=== PATIENT | female | born 1950 | race Caucasian/White ===

== ENCOUNTER 2016-05-04 07:59 | Observation (INO) | payer BC ==
[2016-05-04] MEDS ORDERED: NITROGLYCERIN OINT 1 INCH/GM PACKET TOPICAL STA (08:21)
[2016-05-04] MEDS ORDERED: ASPIRIN 81 MG CHEW PO STA (08:21)
--- NOTE | 2016-05-04 08:24 | ED ---
General Adult HPI - General Chief complaint: Chest Pain Stated complaint: chest pain Time Seen by Provider: 05/04/16 08:16 Source: patient, RN notes reviewed Mode of arrival: wheelchair Limitations: no limitations - History of Present Illness Initial comments: Patient is a pleasant 65-year-old female presenting to the emergency department complaining of chest discomfort. Onset of symptoms was last night. Symptoms have been somewhat coming and going. Discomfort is near resolved at this time. Discomfort described as tightness. Despite nursing document patient denies dyspnea and patient denies radiation. No nausea. No diaphoresis. Patient has been having some similar symptoms over the past few weeks. Sometimes symptoms are at nighttime. No leg pain or swelling. No cough or fever. - Related Data Allergies Allergy/AdvReac Type Severity Reaction Status Date / Time amoxicillin AdvReac Rash/Hives Verified 05/04/16 08:12 Review of Systems ROS Statement: Those systems with pertinent positive or pertinent negative responses have been documented in the HPI. ROS Other: All systems not noted in ROS Statement are negative. Constitutional: Denies: fever Eyes: Denies: eye pain ENT: Denies: ear pain Respiratory: Denies: cough, dyspnea Cardiovascular: Reports: chest pain Endocrine: Denies: fatigue Gastrointestinal: Denies: abdominal pain Genitourinary: Denies: urgency Musculoskeletal: Denies: back pain Skin: Denies: rash Neurological: Denies: headache Psychiatric: Reports: anxiety Past Medical History History of Any Multi-Drug Resistant Organisms: None Reported Past Surgical History: Cholecystectomy Past Psychological History: Depression Smoking Status: Never smoker Past Alcohol Use History: None Reported Past Drug Use History: None Reported General Exam Limitations: no limitations General appearance: alert, in no apparent distress Head exam: Present: atraumatic Eye exam: Present: normal appearance, PERRL ENT exam: Present: normal oropharynx Neck exam: Present: normal inspection Respiratory exam: Present: normal lung sounds bilaterally. Absent: chest wall tenderness Cardiovascular Exam: Present: regular rate, normal rhythm Expanded Peripheral pulses: 2+: Radial (R), Radial (L), Dorsalis Pedis (R), Dorsalis Pedis (L) GI/Abdominal exam: Present: soft. Absent: tenderness Extremities exam: Present: normal inspection. Absent: pedal edema, calf tenderness Neurological exam: Present: alert Psychiatric exam: Present: normal affect, normal mood Skin exam: Absent: rash Course Vital Signs 05/04/16 05/04/16 05/04/16 08:06 08:28 09:22 Temperature 97.8 F 98.7 F Pulse Rate 85 72 66 Respiratory 18 16 15 Rate Blood Pressure 190/90 182/79 153/87 O2 Sat by Pulse 98 100 100 Oximetry EKG Findings - EKG Comments: EKG Findings:: Normal sinus rhythm at 81. IL 120. QRS 96. QT 390. QTC 453. Normal axis. Inferior Q waves. No acute ST change. Medical Decision Making - Medical Decision Making Patient reevaluated and resting comfortably in bed. Patient and family updated on results and plan. Case discussed in detail with Dr. Bernstein, who will admit for Dr. Sandoval. She is covering for Dr. duarte. - Lab Data Result diagrams: 05/04/16 08:15 05/04/16 08:15 Lab Results 05/04/16 05/04/16 05/04/16 Range/Units 08:15 08:15 08:15 WBC 4.8 (3.8-10.6) k/uL RBC 4.50 (3.80-5.40) m/uL Hgb 13.9 (11.4-16.0) gm/dL Hct 42.4 (34.0-46.0) % MCV 94.2 (80.0-100.0) fL MCH 30.9 (25.0-35.0) pg MCHC 32.8 (31.0-37.0) g/dL RDW 13.0 (11.5-15.5) % Plt Count 234 (150-450) k/uL Neutrophils % 41 % Lymphocytes % 42 % Monocytes % 4 % Eosinophils % 9 % Basophils % 0 % Neutrophils # 1.9 (1.3-7.7) k/uL Lymphocytes # 2.0 (1.0-4.8) k/uL Monocytes # 0.2 (0-1.0) k/uL Eosinophils # 0.5 (0-0.7) k/uL Basophils # 0.0 (0-0.2) k/uL PT (9.0-12.0) sec INR (<1.1) APTT (22.0-30.0) sec Sodium 144 (137-145) mmol/L Potassium 4.4 (3.5-5.1) mmol/L Chloride 107 (98-107) mmol/L Carbon Dioxide 26 (22-30) mmol/L Anion Gap 11 mmol/L BUN 21 H (7-17) mg/dL Creatinine 0.67 (0.52-1.04) mg/dL Est GFR (MDRD) Af Amer >60 (>60 ml/min/1.73 sqM) Est GFR (MDRD) Non-Af >60 (>60 ml/min/1.73 sqM) Glucose 100 H (74-99) mg/dL Calcium 9.4 (8.4-10.2) mg/dL Magnesium 2.2 (1.6-2.3) mg/dL Total Bilirubin 0.9 (0.2-1.3) mg/dL AST 33 (14-36) U/L ALT 27 (9-52) U/L Alkaline Phosphatase 67 (38-126) U/L Total Creatine Kinase 65 (30-135) U/L CK-MB (CK-2) 0.9 (0.0-2.4) ng/mL CK-MB (CK-2) Rel Index 1.4 Troponin I <0.012 (0.000-0.034) ng/mL Total Protein 7.4 (6.3-8.2) g/dL Albumin 4.2 (3.5-5.0) g/dL 05/04/16 Range/Units 08:15 WBC (3.8-10.6) k/uL RBC (3.80-5.40) m/uL Hgb (11.4-16.0) gm/dL Hct (34.0-46.0) % MCV (80.0-100.0) fL MCH (25.0-35.0) pg MCHC (31.0-37.0) g/dL RDW (11.5-15.5) % Plt Count (150-450) k/uL Neutrophils % % Lymphocytes % % Monocytes % % Eosinophils % % Basophils % % Neutrophils # (1.3-7.7) k/uL Lymphocytes # (1.0-4.8) k/uL Monocytes # (0-1.0) k/uL Eosinophils # (0-0.7) k/uL Basophils # (0-0.2) k/uL PT 9.8 (9.0-12.0) sec INR 1.0 (<1.1) APTT 24.9 (22.0-30.0) sec Sodium (137-145) mmol/L Potassium (3.5-5.1) mmol/L Chloride (98-107) mmol/L Carbon Dioxide (22-30) mmol/L Anion Gap mmol/L BUN (7-17) mg/dL Creatinine (0.52-1.04) mg/dL Est GFR (MDRD) Af Amer (>60 ml/min/1.73 sqM) Est GFR (MDRD) Non-Af (>60 ml/min/1.73 sqM) Glucose (74-99) mg/dL Calcium (8.4-10.2) mg/dL Magnesium (1.6-2.3) mg/dL Total Bilirubin (0.2-1.3) mg/dL AST (14-36) U/L ALT (9-52) U/L Alkaline Phosphatase (38-126) U/L Total Creatine Kinase (30-135) U/L CK-MB (CK-2) (0.0-2.4) ng/mL CK-MB (CK-2) Rel Index Troponin I (0.000-0.034) ng/mL Total Protein (6.3-8.2) g/dL Albumin (3.5-5.0) g/dL - Radiology Data Radiology results: image reviewed (Chest x-ray shows no acute process) Disposition Clinical Impression: Unstable angina pectoris Disposition: ADMITTED IP TO THIS HOSP
[2016-05-04 08:36] LABS: Basophils % (A) 0 %; Eosinophils # (A) 0.5 k/uL (0-0.7); Eosinophils % (A) 9 %; HCT 42.4 % (34.0-46.0); HGB 13.9 gm/dL (11.4-16.0); Luc # (Auto) 0.19; Luc % (Auto) 4; Lymphocytes % (A) 42 %; MCH 30.9 pg (25.0-35.0); MCHC 32.8 g/dL (31.0-37.0); MCV 94.2 fL (80.0-100.0); Mean Platelet Volume 6.7; Monocytes # (A) 0.2 k/uL (0-1.0); Monocytes % (A) 4 %; Neutrophils # (A) 1.9 k/uL (1.3-7.7); Neutrophils % (A) 41 %; WBC 4.8 k/uL (3.8-10.6); WBC (Perox) 4.85
[2016-05-04 08:47] LABS: Partial Thromboplastin Time 24.9 sec (22.0-30.0); Prothrombin Time 9.8 sec (9.0-12.0)
[2016-05-04 09:00] LABS: ALT 27 U/L (9-52); AST 33 U/L (14-36); Alkaline Phosphatase 67 U/L (38-126); Anion Gap 11 mmol/L; Blood Urea Nitrogen 21 mg/dL (7-17); Calcium 9.4 mg/dL (8.4-10.2); Carbon Dioxide 26 mmol/L (22-30); Chloride 107 mmol/L (98-107); Glucose 100 mg/dL (74-99); Magnesium 2.2 mg/dL (1.6-2.3); Non-African American GFR(MDRD) >60 (>60 ml/min/1.73 sqM); Potassium 4.4 mmol/L (3.5-5.1); Sodium 144 mmol/L (137-145); Total Bilirubin 0.9 mg/dL (0.2-1.3); Total Protein 7.4 g/dL (6.3-8.2)
--- NOTE | 2016-05-04 09:01 | XR ---
EXAMINATION TYPE: XR chest 2V DATE OF EXAM: 05/04/2016 8:38 AM COMPARISON: NONE HISTORY: Chest pain TECHNIQUE: Frontal and lateral views of the chest are obtained. FINDINGS: There is no focal air space opacity, pleural effusion, or pneumothorax seen. The cardiac silhouette size is within normal limits. There are overlying cardiac leads. Surgical clips in the up per abdomen. The osseous structures are intact. IMPRESSION: No acute cardiopulmonary process.
[2016-05-04 09:17] LABS: Creatine Kinase 65 U/L (30-135)
[2016-05-04 09:30] LABS: Creatine Kinase MB 0.9 ng/mL (0.0-2.4); Troponin I <0.012 ng/mL (0.000-0.034)
[2016-05-04] MEDS ORDERED: HEPARIN SODIUM,PORCINE 5,000 UNIT/ML 1 ML VIAL IV PRN (09:46)
[2016-05-04] MEDS ORDERED: NITROGLYCERIN SL TABS 0.4 MG TAB SUBLINGUAL PRN (09:46)
[2016-05-04] MEDS ORDERED: HEPARIN SODIUM,PORCINE 5,000 UNIT/ML 1 ML VIAL IV ONE (09:46)
[2016-05-04] MEDS: HEPARIN SODIUM,PORCINE/D5W PMX 25,000 UNIT in DEXTROSE/WATER 1 500ML.BAG IV SCH (10:12)
[2016-05-04] MEDS ORDERED: SODIUM CHLORIDE 0.9% 1,000 ML IV SCH (10:15)
--- NOTE | 2016-05-04 15:15 | P.CRDCN ---
History of Present Illness Consult date: 05/04/16 Chief complaint: Chest discomfort History of present illness: This is a pleasant 65-year-old female patient with no significant past medical history presented to the hospital with a chest tightness. She describes chest discomfort, across the chest, as a tightness in the chest, without any radiation to the arm or neck or shoulders and without any associated symptoms of shortness of breath, sweating, nausea or vomiting, or syncope. The symptom lasted about 45 minutes to one hour. She presented to the emergency room. The EKG showed sinus rhythm without acute changes with old inferior MT. The patient had only one set of cardiac enzymes came in to be unremarkable. The patient has no significant past medical history of diabetes or hypertension or dyslipidemia She does not smoke or drink alcohol. She has a significant family history of coronary artery disease. At this point, I will follow-up with the serial cardiac enzymes and further recommendation to follow that. Past Medical History Past Medical History: No Reported History History of Any Multi-Drug Resistant Organisms: None Reported Past Surgical History: Cholecystectomy Past Anesthesia/Blood Transfusion Reactions: No Reported Reaction Past Psychological History: Depression Smoking Status: Never smoker Past Alcohol Use History: None Reported Past Drug Use History: None Reported - Past Family History Brother(s) Family Medical History: Cancer Additional Family Medical History / Comment(s): liver, colon Father Family Medical History: Coronary Artery Disease (CAD), Diabetes Mellitus, Hypertension Mother Family Medical History: Coronary Artery Disease (CAD) Medications and Allergies Home Medications Medication Instructions Recorded Confirmed Type Naproxen Sodium [Aleve] 220 mg PO DAILY 05/04/16 05/04/16 History Allergies Allergy/AdvReac Type Severity Reaction Status Date / Time amoxicillin AdvReac Rash/Hives Verified 05/04/16 10:45 Physical Exam Vitals: Vital Signs Temp Pulse Resp BP Pulse Ox 05/04/16 10:50 18 05/04/16 10:17 97.8 F 69 16 144/76 98 Intake and Output 05/04/16 05/04/16 05/04/16 06:59 14:59 22:59 Other: Weight 83.915 kg Patient Weight 05/05/16 06:59 Weight 83.915 kg - Constitutional General appearance: no acute distress - Respiratory Respiratory: bilateral: CTA - Cardiovascular Rhythm: regular Heart sounds: normal: S1, S2 Results 05/04/16 08:15 05/04/16 08:15 Current Medications Generic Name Dose Route Start Last Admin Trade Name Freq PRN Reason Stop Dose Admin Aspirin 325 mg 05/05/16 09:00 Aspirin PO DAILY KENZIE Heparin Sodium (Porcine) 0 unit 05/04/16 09:46 Heparin IV Q6HR PRN Low PTT Protocol Heparin Sodium/Dextrose 25,000 500 mls @ 19.97 mls/hr 05/04/16 10:00 10:12 unit/ IV Solution IV 11.9 units/kg/hr .Q24H KENZIE 19.97 mls/hr Protocol Administration 11.9 UNITS/KG/HR Sodium Chloride 1,000 mls @ 20 mls/hr 05/04/16 10:15 05/04/16 10:11 Saline 0.9% IV 20 mls/hr .Q24H KENZIE Administration Nitroglycerin 1 inch 05/04/16 12:00 Nitro-Bid Oint TOPICAL Q6HR KENZIE Nitroglycerin 0.4 mg 05/04/16 09:46 Nitrostat SUBLINGUAL Q5M PRN Chest Pain Sodium Chloride 10 ml 05/04/16 21:00 Saline Flush IV BID KENZIE Intake and Output 05/04/16 05/04/16 05/04/16 06:59 14:59 22:59 Other: Weight 83.915 kg Patient Weight 05/05/16 06:59 Weight 83.915 kg Assessment and Plan Plan: Assessment #1 chest tightness #2 significant family history of coronary artery disease Plan #1 rule out acute coronary event #2 follow-up with the serial cardiac enzymes #3 further recommendation to follow the
[2016-05-04 15:28] LABS: Creatine Kinase 59 U/L (30-135)
[2016-05-04 15:41] LABS: Creatine Kinase MB 0.6 ng/mL (0.0-2.4); Troponin I <0.012 ng/mL (0.000-0.034)
[2016-05-04] MEDS: NITROGLYCERIN OINT 1 INCH/GM PACKET TOPICAL SCH ×2 (16:24→19:31)
--- NOTE | 2016-05-04 18:33 | HP ---
DATE OF SERVICE: 05/04/2016 CHIEF COMPLAINT: Chest pain. HISTORY OF PRESENT ILLNESS: Ms. Perez is a 65-year-old female with no significant past medical history coming into the hospital with a chief complaint of chest discomfort. The patient states that she has been having chest discomfort on and off for the past one month. It is mostly substernal in location. The patient denies having any radiation of the pain, to the neck, jaw or back. She denies having any difficulty in breathing. No loss of consciousness, no dizziness. She denies having any nausea or diaphoresis or vomiting. Yesterday the chest pain lasted a little longer than what it usually does and so she came into the hospital for further evaluation. The patient denies having any orthopnea, PND, or lower extremity swelling. She denies having any history of smoking. There is family history of coronary artery disease in both her parents. She follows with Dr. Sandoval, who is her PCP. REVIEW OF SYSTEMS: CONSTITUTIONAL: Denies having any fevers, chills, or rigors. RESPIRATORY: No cough. No difficulty in breathing. CARDIAC: As per HPI. GI: No abdominal pain, nausea, vomiting, or diarrhea. : No dysuria or hematuria. HEMATOLOGICAL: No history of any recurrent infections or easy bruising. DERMATOLOGICAL: None. ENDOCRINE: No history of hypertension or diabetes. MUSCULOSKELETAL: No joint aches, pains or swellings. PSYCHIATRIC: None. All 13 review of systems are done and negative except for ones mentioned in the HPI. ALLERGIES: AMOXICILLIN. PAST MEDICAL HISTORY: None. Patient's home medication: Naproxen 220 mg p.o. daily p.r.n. for joint pains. FAMILY HISTORY: Positive for coronary artery disease in both parents. SOCIAL HISTORY: Never a smoker. No alcohol abuse. No intravenous drug abuse. PAST SURGICAL HISTORY: Cholecystectomy. On examination, patient's vital signs: Temperature 97.8, heart rate 69, respiratory rate 16, blood pressure 144/76, saturating at 98% on 2 liters of nasal cannula. GENERAL EXAMINATION: Patient appears to be in no acute distress. HEAD: Atraumatic and noncommunicative. Pupils round and reactive to light. No pallor. No icterus. NECK: No JVD. No thyromegaly. CARDIOVASCULAR: S1, S2 heard. No additional sounds. RESPIRATORY: Bilateral breath sounds are positive. No wheeze or crackles. ABDOMEN: Soft, nontender, no organomegaly. Bowel sounds are positive. EXTREMITIES: No edema. No cyanosis, no clubbing. Peripheral pulses are felt. P[employer]ER PROP PLAYER: Alert, awake and tender x3. No focal neurological deficits. PSYCHIATRIC: Appropriate mood and affect. SKIN: No rash. The patient's labs: White count of 4.8, hemoglobin is 13.9, platelets of 234. Sodium is 144, potassium 4.4, chloride 103, bicarb 26, BUN 21, creatinine 0.67, blood glucose of 100, troponin less than 0.012. Patient also had a chest x-ray, no acute cardiopulmonary process and EKG normal sinus rhythm. ASSESSMENT AND PLAN: Unstable angina. Patient has been started on heparin drip and cardiology consult has been obtained. Patient has very strong family history of coronary artery disease and has chest pain going on for almost a month. She will need a stress test done so we will keep the patient n.p.o. for tomorrow morning. Will continue to follow the patient and further recommendations depending on the progress of the patient. CHANELLE
[2016-05-04 19:50] VITALS: RESP 16
[2016-05-04 21:42] LABS: Creatine Kinase 53 U/L (30-135)
[2016-05-04 21:55] LABS: Creatine Kinase MB 0.5 ng/mL (0.0-2.4); Troponin I <0.012 ng/mL (0.000-0.034)
[2016-05-05 03:54] LABS: Mean Platelet Volume 7.1
[2016-05-05] MEDS: NITROGLYCERIN OINT 1 INCH/GM PACKET TOPICAL SCH ×3 (04:15→13:18)
[2016-05-05 04:23] LABS: Cholesterol 156 mg/dL (<200); HDL Cholesterol 75 mg/dL (40-60); Triglycerides 46 mg/dL (<150)
[2016-05-05] MEDS ORDERED: ASPIRIN 325 MG TAB PO SCH (09:00)
--- NOTE | 2016-05-05 09:36 | PN ---
Mary is a 65-year-old lady who was admitted to hospital with chest pain and ruled out for myocardial infarction. Cardiac enzymes are negative. At the time of my evaluation this morning, she is pain-free. On exam, comfortable at rest. Vital signs are stable. There is no jugular venous distention. Chest exam reveals good air entry bilaterally. Heart exam reveals first and second heart sounds. No gallop. Exam of the extremities did not reveal any edema. Peripheral pulses are felt. ASSESSMENT: Chest pain, rule out coronary artery disease. PLAN: Patient will undergo a stress test this morning. If this is negative, she will go home. If it is abnormal, she will undergo cardiac catheterization.
--- NOTE | 2016-05-05 11:23 | NM ---
EXAMINATION TYPE: NM stress cardiolite complete DATE OF EXAM: 05/05/2016 11:11 AM COMPARISON: NONE HISTORY: Chest pain TECHNIQUE: After the intravenous administration of 10.5 mCi Tc 99m Sestamibi - Rest images obtained 45 minutes post injection. The patient exercised using a JOSE protocol and 1 minute prior to peak exercise was injected with 27.0 mCi Tc 99m Sestamibi - Stress images obtained 30 minutes post injecti on. FINDINGS: Targeted heart rate was achieved during performance of the study. Review of stress and rest SPECT aye ges demonstrates no distinct perfusion abnormality. Gated analysis shows normal wall motion with an estimated left ventricular ejection fraction of 57 %. IMPRESSION: No scintigraphic evidence for reversible ischemia
--- NOTE | 2016-05-05 12:00 | ECHOF ---
Referral Reason:chest pain MEASUREMENTS -------- HEIGHT: 160.0 cm WEIGHT: 83.9 kg BP: 130/60 IVSd: 1.0 cm (0.6 - 1.1) LVIDd: 4.2 cm (3.9 - 5.3) LVPWd: 0.8 cm (0.6 - 1.1) IVSs: 1.3 cm LVIDs: 3.3 cm LVPWs: 1.3 cm LA Diam: 3.0 cm (2.7 - 3.8) LAESV Index (A-L): 27.23 ml/m Ao Diam: 2.6 cm (2.0 - 3.7) AV Cusp: 1.6 cm (1.5 - 2.6) LA Diam: 2.9 cm (2.7 - 3.8) MV EXCURSION: 14.273 mm (> 18.000) MV EF SLOPE: 90 mm/s (70 - 150) EPSS: 0.5 cm MV E Nate: 0.71 m/s MV DecT: 161 ms MV A Nate: 0.74 m/s MV E/A Ratio: 0.96 RAP: 5.00 mmHg RVSP: 20.01 mmHg FINDINGS -------- Sinus rhythm. This was a technically adequate study. There is borderline concentric left ventricular hypertrophy. Overall left ventricular systolic function is normal with, an EF between 55 - 60 %. The right ventricle is normal in size. Normal LA size by volume 22+/-6 ml/m2. The right atrial size is normal. There is mild aortic valve sclerosis. Trace amount of aortic regurgitation. Mild mitral annular calcification present. Mild mitral regurgitation is present. Mild tricuspid regurgitation present. There is no evidence of pulmonary hypertension. The right ventricular systolic pressure, as measured by Doppler, is 20.01mmHg. There is no pulmonic regurgitation present. The aortic root size is normal. There is no pericardial effusion. CONCLUSIONS -------- 1. There is borderline concentric left ventricular hypertrophy. 2. The right ventricular systolic pressure, as measured by Doppler, is 20.01mmHg. 3. Overall left ventricular systolic function is normal with, an EF between 55 - 60 %. 4. Normal LA size by volume 22+/-6 ml/m2. 5. There is mild aortic valve sclerosis. 6. Trace amount of aortic regurgitation. 7. Mild mitral annular calcification present. 8. Mild mitral regurgitation is present. 9. Mild tricuspid regurgitation present. 10. There is no evidence of pulmonary hypertension. CHAIN MORTISER OPERATOR: Antoinette Smith RDCS
[2016-05-05 12:10] VITALS: BP 140/71; PULSE 80; TEMP 98.8
[2016-05-05] MEDS: HEPARIN SODIUM,PORCINE/D5W PMX 25,000 UNIT in DEXTROSE/WATER 1 500ML.BAG IV SCH (13:19)
--- NOTE | 2016-05-06 13:51 | ECHOS ---
DATE OF SERVICE: 05/05/16 AGE: 65Y SEX: F HT: 63" WT: 185 lbs. Protocol Caesar: Cardiolite Others: Stage: 2 Dur. of Exercise: 3:00 *Heart Rate Blood Pressure *Rest: 83 Rest: 132/90 * *Max. Achieved: 154 Maximum BP: 175/91 85% PMHR: 133 100% PMHR: 157 *METS: 4.0 INDICATIONS: Chest Pain MEDICATIONS: Pretesting physical examination showed a heart rate of 83,. pressure is 132/90 mmHg. EKG shows sinus rhythm. The patient exercised according to Caesar protocol for a total of 3 minutes and achieved 4.0 Mets. Maximum heart rate was 154 which was about 98% of maximum predicted heart rate. Maximum blood pressure was blood pressure was 175/91 mmHg. Clinically, the patient did not have any symptoms and the EKG did not show any significant ST or T wave abnormalities consistent with ischemia. CONCLUSION: 1. Poor exercise capacity. 2. Normal EKG in response to exercise. 3. Please follow up on the Cardiolite portion on a separate report from the radiology department.
--- NOTE | 2016-05-06 23:42 | DS ---
DATE OF ADMISSION: 05/04/2016 DATE OF DISCHARGE: 05/05/2016 The patient is a 65-year-old female with no significant past medical history, coming into the hospital with a chief complaint of chest discomfort. The patient was complaining of chest discomfort that had been going on and off for the past one month which is mostly substernal in location. The patient denied having any radiation. No associated nausea, vomiting, or diaphoresis. Patient does have family history of coronary artery disease in both parents. Cardiology services has been consulted. The patient had serial troponins and EKGs done during her hospital stay that are within normal limits and she had echocardiogram and Cardiolite stress test done, which was negative for any evidence of reversible ischemia and cardiology has cleared the patient for discharge so she is being discharged home in stable condition. DISCHARGE DIAGNOSES: 1. Unstable angina. 2. Family history of coronary artery disease. Patient's discharge medications: Naproxen 220 mg p.o. daily p.r.n. for pain. Follow-up: The patient is advised to follow up with her PCP Dr. Juan Sandoval in [address] Douglas Galvan on an as needed basis. The patient is being discharged home in stable condition.
== END 2016-05-05 13:32 | disposition home or self-care (01) ==
LOC: EC 07:59 → 3OBS 09:48
PROVIDERS: ADMIT Internal Medicine; ATTEND Internal Medicine
DX: I20.0 Unstable angina (principal); Z83.3 Family history of diabetes mellitus; Z82.49 Family history of ischemic heart disease and other diseases of the circulatory system; Z88.0 Allergy status to penicillin
CPT/HCPCS: 36415; 94760; 93005; 93017; 93306; 80061; 80053; 82550; 82553; 83735; 84484; 85025; 85049; 85610; 85730 ×2; 71020; 78452; 99285; 96365; 96376; G0378 ×2; A9500; J1644 ×2; 96366